=== PATIENT | male | born 1990 | race Caucasian/White ===

== ENCOUNTER 2018-04-01 08:30 | Outpatient (CLI) | payer MEDICAID | END 2018-04-01 08:31 | disposition critical access hospital (66) | LOC: EMS 08:30 | PROVIDERS: ATTEND Surgery | DX: R07.9 Chest pain, unspecified (principal) | CPT/HCPCS: A0425; A0429; A0999 ==

== ENCOUNTER 2018-04-01 08:46 | Emergency (ER) | payer MEDICAID ==
[2018-04-01 09:07] VITALS: BP 125/76
--- NOTE | 2018-04-01 09:45 | XRAY Report ---
Procedure Date: 04/01/2018 Accession Number: [id number] / [id number] Procedure: XR - Chest 2 View X-Ray CPT Code: 80803 FULL RESULT: EXAM: CHEST RADIOGRAPHY EXAM DATE: 04/01/2018 09:28 AM. CLINICAL HISTORY: Sudden onset of chest pain in the right pectoral x1 day. COMPARISON: None. TECHNIQUE: 2 views. FINDINGS: Lungs/Pleura: No focal opacities evident. No pleural effusion. Normal volumes. There is linear lucency outlining the right mediastinal border measuring up to 9 mm in width, seen on the frontal view only. This could represent a very small medial pneumothorax. No pneumothorax seen at the lung apices. Mediastinum: Heart and mediastinal contours are unremarkable. As noted above, there is linear lucency outlining the right mediastinal border. This could represent pneumomediastinum. However, there is no lucency outlining the left mediastinal border or extending superiorly into the neck soft tissue. Other: No acute osseous abnormality. IMPRESSION: Linear lucency outlining the right mediastinal border. This could represent trace pneumomediastinum or a very small right medial pneumothorax, although the configuration is not classic for either. The appearance could also be artifactual due to the Mach band effect. RADIA
--- NOTE | 2018-04-01 10:50 | ED Physician Documentation ---
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) Timing - duration: Hours Timing - details: Abrupt onset, Still present Quality: Pressure, Tightness Location: Substernal, Right chest Radiation: No: Jaw, Neck, Back, Abdominal, Left upper extremity, Right upper extremity Improved by: Rest Worsened by: Exertion, Inspiration, Movement Associated symptoms: Shortness of air Similar symptoms before: Has not had sx before Recently seen: Not recently seen - Additional information Additional information: 27-year-old male previously well has developed acute right sided chest pain this morning 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 He has a cough that is continuous and related to smoking and allergy. He does not feel his cough is different from normal and he denies use of crack cocaine or smoking meth. He does smoke cannabis but has not changed this. Review of Systems Constitutional: denies: Fever Eyes: denies: Decreased vision Ears: denies: Ear pain Nose: denies: Rhinorrhea / runny nose, Congestion Throat: denies: Sore throat Cardiac: reports: Chest pain / pressure. denies: Palpitations, Pedal edema, Calf pain Respiratory: reports: Cough. denies: Dyspnea GI: denies: Abdominal Pain, Nausea, Vomiting : denies: Dysuria, Frequency PD ED PE NORMAL - Vitals Vital signs reviewed: Yes (normal ) - General General: Alert and oriented X 3, No acute distress, Well developed/nourished, Other (sitting comfortably playing a video game on his phone the entire time I am talking to him or examining him. ) - HEENT HEENT: Atraumatic, PERRL, Ears normal, Moist mucous membranes, Pharynx benign, Dentition benign - Neck Neck: Supple, no meningeal sign, No bony TTP - Cardiac Cardiac: RRR, No murmur - Respiratory Respiratory: No respiratory distress, Clear bilaterally, Other (he is not wanting to take a deep breath. 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 No pneumopericardium normal mediastinum or pneumothorax. No demonstrated cause for the patient's symptoms. Questionable right sided pneumomediastinum noted on chest radiograph felt to be an artifact of normal variation of blood vessel location.), EMP read indepedently, See rad report PD MEDICAL DECISION MAKING - ED course Complexity details: reviewed results, re-evaluated patient, considered differential, d/w patient ED course: 27-year-old male has pleuritic chest pain and pleurisy. Imaging was concerning for the possibility of mediastinal air and this was not borne out by formal CT scanning. He is administered dexamethasone 10 mg orally and given instructions on pleurisy. - Sepsis Event Vital Signs: Oxygen O2 Source Room air Departure - Departure Disposition: 01 Home, Self Care Clinical Impression: Pleurisy Condition: Stable Instructions: ED Chest Pain Pleurisy Follow-Up: [facility] [Provider Group] Discharge Date/Time: 04/01/18 11:49
[2018-04-01] MEDS ORDERED: DEXAMETHASONE 10 MG/ML VIAL PO STA (10:59)
[2018-04-01] MEDS ORDERED: CHERRY SYRUP 10 ML UDC PO ONE (11:01)
--- NOTE | 2018-04-01 11:11 | CT Report ---
Procedure Date: 04/01/2018 Accession Number: [id number] / [id number] Procedure: CT - Chest W/O CPT Code: FULL RESULT: EXAM: CT CHEST WITHOUT CONTRAST EXAM DATE: 04/01/2018 10:58 AM. CLINICAL HISTORY: 27-year-old male with right-sided chest pain with possible pneumopericardium on chest radiograph. Further assessment. COMPARISONS: Chest 2 view 04/01/2018. TECHNIQUE: Emergent axial helical CT imaging was performed through the chest. IV contrast: None. Reconstructions: Coronal and sagittal. In accordance with CT protocol optimization, one or more of the following dose reduction techniques were utilized for this exam: automated exposure control, adjustment of mA and/or KV based on patient size, or use of iterative reconstructive technique. FINDINGS: Lungs/Pleura: No nodules, bronchial thickening, consolidation, or edema. Pulmonary vasculature is normal. No pericardial or pleural effusion. No pneumothorax. Mediastinum: Normal. No adenopathy or masses. The heart and great vessels are normal. No pneumopericardium/pneumomediastinum noted. Bones: Normal. Visualized Abdomen: Unremarkable. Other: None. IMPRESSION: Normal examination. No pneumopericardium/pneumomediastinum, or pneumothorax. No demonstrated cause for the patient's symptoms. Questionable right-sided pneumomediastinum noted on chest radiograph felt to be an artifact of normal variation of blood vessel location. RADIA
== END 2018-04-01 11:49 | disposition home or self-care (01) ==
LOC: EDBD → ED 08:46
DX: R09.1 Pleurisy (principal)
CPT/HCPCS: 71046; 71250; 93005; 99282; 99284; A9270

== ENCOUNTER 2018-05-02 10:22 | Emergency (ER) | payer MEDICAID ==
--- NOTE | 2018-05-02 10:59 | XRAY Report ---
Reason: pain Procedure Date: 05/02/2018 Accession Number: [id number] / [id number] Procedure: XR - Ankle 3 View LT CPT Code: FULL RESULT: EXAM: LEFT ANKLE RADIOGRAPHY EXAM DATE: 05/02/2018 10:48 AM. CLINICAL HISTORY: Pain after inversion injury. COMPARISON: None. TECHNIQUE: 3 views. FINDINGS: Bones: Comminuted, intra-articular fracture of the anterior/mid distal tibial metaphysis with a 2 cm butterfly fragment. There is up to 3 mm displacement. No significant angulation. No other fracture is demonstrated. Joints: Ankle mortise appears preserved; no dislocation. No large effusion. Soft Tissues: Moderate soft tissue swelling, most pronounced laterally. IMPRESSION: Acute, comminuted, intra-articular fracture of the distal tibia. RADIA
--- NOTE | 2018-05-02 13:15 | ED Physician Documentation ---
PD HPI LOWER EXT INJURY - Stated complaint Stated Complaint: LEFT ANKLE INJ - Chief complaint Chief Complaint: Ext Problem - History obtained from History obtained from: Patient - History of Present Illness PD HPI LOW EXT INJURY LOCATION: Left (He slipped and fell down a steep bank last night injuring his left ankle. It was an isolated injury and he has severe pain and unable to walk. He also complains of an infected right maxillary premolar. There is no facial swelling or fevers.) Review of Systems Ten Systems: 10 systems reviewed and negative Constitutional: denies: Fever, Chills Throat: reports: Dental pain / toothache Cardiac: denies: Chest pain / pressure, Palpitations Respiratory: denies: Dyspnea, Cough PD PAST MEDICAL HISTORY - Past Medical History Past Medical History: No - Present Medications Home Medications: Ambulatory Orders Medication Instructions Recorded Confirmed Knee Scooter 1 unit TD ONCE #1 05/02/18 Oxycodone HCl/Acetaminophen 1 - 2 each PO Q6H PRN #20 tablet 05/02/18 [Percocet 5-325 mg Tablet] - Allergies Allergies/Adverse Reactions: Allergies Allergy/AdvReac Type Severity Reaction Status Date / Time Penicillins Allergy Anaphylaxis Verified 05/02/18 10:34 - Social History Does the pt smoke?: Yes Does the pt drink ETOH?: No - Family History Family history: reports: Non contributory PD ED PE NORMAL - Vitals Vital signs reviewed: Yes - General General: Alert and oriented X 3, No acute distress - HEENT HEENT: Other (Generally bad dentition with a tender upper right max premolar. No facial swelling or trismus.) - Neck Neck: Supple, no meningeal sign, No bony TTP - Extremities Extremities: Other (V tender about the left ankle with a lot of swelling. Good pedal pulses and sensation.) - Neuro Neuro: Alert and oriented X 3, Normal speech - Psych Psych: Normal mood, Normal affect Results - Vitals Vitals: Vital Signs - 24 hr 05/02/18 10:31 Temperature 36.3 C L Heart Rate 92 Respiratory 20 Rate Blood Pressure 136/75 H O2 Saturation 97 Oxygen O2 Source Room air - Rads (name of study) L ankle Radiology: EMP read contemporaneously (Comminuted, intra-articular fracture of the anterior/mid distal tibial metaphysis with a 2 cm butterfly fragment. There is up to 3 mm displacement. No significant angulation. No other fracture is demonstrated. ) Procedures - Splint (location) LLE Splint applied by: Tech Type of splint: Fiberglass, Short leg, Posterior Other: Patient tolerated well, No complications, Neurovascular intact PD MEDICAL DECISION MAKING - ED course ED course: I spoke with Janett after speaking with the on-call orthopedist here and they will call him and arranged a follow-up appointment for clinic evaluation. - Consults Consults: Consulted (name) (Dr Garcia Preston, medical liaison ortho- this is a displaced pilon frx and best served at a trauma center.) - Sepsis Event Vital Signs: Vital Signs - 24 hr 05/02/18 10:31 Temperature 36.3 C L Heart Rate 92 Respiratory 20 Rate Blood Pressure 136/75 H O2 Saturation 97 Oxygen O2 Source Room air Departure - Departure Disposition: 01 Home, Self Care Clinical Impression: Closed left pilon fracture Qualifiers: Encounter type: initial encounter Fracture alignment: displaced Qualified Code(s): S82.872A - Displaced pilon fracture of left tibia, initial encounter for closed fracture Condition: Stable Record reviewed to determine appropriate education?: Yes Instructions: ED Fx Lower Ext Prescriptions: Knee Scooter 1 unit TD ONCE #1 Oxycodone HCl/Acetaminophen [Percocet 5-325 mg Tablet] 1 - 2 each PO Q6H PRN #20 tablet PRN Reason: pain Comments: Janett should call you to arrange for follow-up. Return if worse. Keep the splint on and dry and do not walk or bear weight on that leg. Do not drink or drive while taking narcotic pain medication. Note that many narcotic pain relievers also contain Tylenol/acetaminophen. Please ensure that your total dose of acetaminophen from all sources does not exceed 3 g (3000 mg) per day. You may get constipated while on this medication. Take a stool softener such as Colace twice a day while you are on it. Also add an [id number] laxative such as senna or MiraLAX on any day that you do not have a bowel movement. If you received a narcotic pain medication or sedative while in the emergency department, do not drive for the next 24 hours. Your blood pressure was elevated today on check into the emergency department. This does not mean that you have hypertension, it is a common phenomenon to come to the emergency department and have elevated blood pressure. I recommend that you see your primary care physician within the week to have it rechecked when you are feeling better.
[2018-05-02] MEDS ORDERED: oxyCODONE 5 MG TABLET PO STA (13:23)
[2018-05-02 14:08] VITALS: BP 127/77
--- NOTE | 2018-05-02 17:31 | ED Physician Documentation ---
ED Addendum - Addendum Addendum: 05/02/18 17:30 The orthopedic surgeon from [facility], Dr. Torres called me back well after the patient was discharged. She also offered that if the patient can make his way down to [facility] they would admit him and fix him tomorrow. I called the patient at home and gave him this option but he was not interested and still wants to get into the clinic at a later date. 05/02/18 17:38 The patient rapidly called me back and told me that he would like to present to [facility] ED tomorrow. I called [facility] back and they were okay with this plan.
== END 2018-05-02 14:10 | disposition home or self-care (01) ==
LOC: ED 10:22
DX: S82.872A Displaced pilon fracture of left tibia, initial encounter for closed fracture (principal); W17.81XA Fall down embankment (hill), initial encounter; K08.89 Other specified disorders of teeth and supporting structures; R03.0 Elevated blood-pressure reading, without diagnosis of hypertension
CPT/HCPCS: 29515; 73610; 99283; A9270